=== PATIENT | male | born 1945 | race Caucasian/White ===

== ENCOUNTER → 2022-03-29 10:49 | Outpatient (BNVA) | payer MEDICARE, OTHER, SELFPAY | PROVIDERS: PCP Internal Medicine; Visit Provider Nurse Practitioner Family | DX: R06.81 Apnea, not elsewhere classified (principal); R40.0 Somnolence; R06.83 Snoring | CPT/HCPCS: 99202 ==

== ENCOUNTER → 2022-05-04 10:38 | Outpatient (REF) | payer MEDICARE, OTHER, SELFPAY | LOC: HO.SL 10:38 | PROVIDERS: PCP Internal Medicine; Visit Provider Nurse Practitioner Family | DX: G47.33 Obstructive sleep apnea (adult) (pediatric) (principal); R40.0 Somnolence | CPT/HCPCS: 95806 ==

== ENCOUNTER → 2022-06-01 10:53 | Outpatient (BNVA) | payer MEDICARE, OTHER, SELFPAY | PROVIDERS: PCP Internal Medicine; Visit Provider Nurse Practitioner Family | DX: G47.33 Obstructive sleep apnea (adult) (pediatric) (principal); R40.0 Somnolence; R35.1 Nocturia; E66.9 Obesity, unspecified | CPT/HCPCS: 99212 ==